=== PATIENT | female | born 1980 | race Caucasian/White ===

== ENCOUNTER 2022-04-11 15:58 | Emergency (ER) | payer MEDICAID ==
[~2022-04-11] VITALS: Ht 160 cm; Wt 59.0 kg
[2022-04-11 16:06] VITALS: BP 112/74
[2022-04-11] MEDS ORDERED: LIDO700A30 TP (20:29)
== END 2022-04-11 20:39 | disposition home or self-care (01) ==
LOC: ER 15:58
DX: M54.59 Other low back pain (principal); Z91.81 History of falling
CPT/HCPCS: 99281; 99283